=== PATIENT | female | born 1955 | race Caucasian/White ===

== ENCOUNTER 2022-02-03 07:27 | Inpatient (IN) | payer OTHER ==
[~2022-02-03] VITALS: Ht 160 cm; Wt 72.6 kg
[2022-02-03 07:44] VITALS: BP_SYST 118
[2022-02-03] MEDS ORDERED: NACL 0.9% 1,000 ML IV ONE (08:45)
[2022-02-03] MEDS ORDERED: METHOCARBAMOL 1000 MG/10 ML VIAL IVP ONE (08:45)
[2022-02-03] MEDS ORDERED: KETOROLAC TROMETHAMINE 30 MG VIAL IVP ONE (08:45)
[2022-02-03] MEDS ORDERED: LIP40 PO (08:55)
[2022-02-03] MEDS ORDERED: FLUT16SP16 NS (08:56)
[2022-02-03] MEDS ORDERED: LOSA50TA3 PO (08:56)
[2022-02-03] MEDS ORDERED: SERT-131 PO (08:57)
[2022-02-03] MEDS ORDERED: LEVO150C4 (08:59)
[2022-02-03 09:43] LABS: BASOPHILS # (AUTO) 0.1 K/uL (0.0-0.2); BASOPHILS % (AUTO) 1.2 % (0.0-2.0); EOSINOPHILS # (AUTO) 0.1 K/uL (0.0-0.4); EOSINOPHILS % (AUTO) 0.9 % (0.0-4.0); HEMATOCRIT 37.5 % (36-48); HEMOGLOBIN 13.1 g/dL (12.0-16.0); LYMPHOCYTES # (AUTO) 1.1 K/uL (1.0-5.5); LYMPHOCYTES % (AUTO) 12.2 % (20.5-51.5); MEAN CORPUSCULAR HEMOGLOBIN 34 pg (27-31); MEAN CORPUSCULAR HGB CONC 35 % (32-36); MEAN CORPUSCULAR VOLUME 99 fL (79.0-98.0); MONOCYTES # (AUTO) 0.4 K/uL (0.0-1.0); MONOCYTES % (AUTO) 4.3 % (1.7-9.3); NEUTROPHILS # (AUTO) 7.2 K/uL (1.8-7.7); NEUTROPHILS % (AUTO) 81.4 % (40.0-70.0); PLATELET COUNT (AUTO) 210 K/uL (130-430); RED CELL DISTRIBUTION WIDTH 12.8 % (9.0-15.0); WHITE BLOOD COUNT (AUTO) 8.8 K/uL (4.8-10.8)
[2022-02-03 10:15] LABS: ANION GAP 9 (5-15); CALCIUM 9.6 mg/dL (8.4-11.0); CHLORIDE 103 mmol/L (98-107); CREATININE 0.67 mg/dL (0.55-1.30); GLUCOSE 98 mg/dL (70-99); POTASSIUM 3.7 mmol/L (3.5-5.1); UREA NITROGEN, BLOOD 17 mg/dL (8-21)
[2022-02-03 10:17] LABS: GFR AFRICAN AMERICAN 113 mL/min (>90)
[2022-02-03 10:23] LABS: INR 0.9 (0.8-1.2); PROTHROMBIN TIME 9.9 SECS (9.5-12.5)
[2022-02-03 10:28] LABS: ALANINE AMINOTRANSFERASE 24 U/L (12-78); ALBUMIN 4.1 g/dL (3.4-4.8); ASPARTATE AMINOTRANSFERASE 21 U/L (10-37); TOTAL BILIRUBIN 0.5 mg/dL (0.0-1.0)
[2022-02-03 10:32] LABS: ACETAMINOPHEN < 1 ug/mL (1-30); ALCOHOL, BLOOD < 3 mg/dL (<10)
[2022-02-03 11:20] LABS: BILIRUBIN,URINE NEGATIVE (NEGATIVE); BLOOD, URINE NEGATIVE (NEGATIVE); CLARITY/URINE CLEAR (CLEAR); COLOR,URINE YELLOW (YELLOW); GLUCOSE,URINE NEGATIVE (NEGATIVE); KETONES,URINE NEGATIVE (NEGATIVE); LEUKOCYTE ESTERASE ,URINE NEGATIVE (NEGATIVE); NITRITE, URINE NEGATIVE (NEGATIVE); PROTEIN URINE NEGATIVE (NEGATIVE); UROBILINOGEN,URINE 0.2 (0.2-1.0)
[2022-02-03 11:37] LABS: BARBITURATE, URINE NEGATIVE (NEG <=200); BENZODIAZEPINE, URINE NEGATIVE (NEG <=150); CANNABINOID, URINE NEGATIVE (NEG <=50); COCAINE, URINE NEGATIVE (NEG <=150); METHAMPHETAMINES SCREEN,URINE NEGATIVE (NEG <=500); OPIATE, URINE NEGATIVE (NEG <=100); PHENCYCLIDINE SCREEN,URINE NEGATIVE (NEG <=25); UR TRICYCLIC ANTIDEPRESSANTS NEGATIVE (NEG <=300); URINE AMPHETAMINE NEGATIVE (NEG <=500); URINE METHADONE NEGATIVE (NEG <=200); URINE OXYCODONE SCREEN NEGATIVE (NEG <=100); URINE PROPOXYPHENE SCREEN NEGATIVE (NEG <=300)
[2022-02-03 15:57] VITALS: BP_SYST 121
[2022-02-03] MEDS ORDERED: SERTRALINE HCL 50 MG TABLET PO ONE (16:00)
[2022-02-03] MEDS ORDERED: ATORVASTATIN 20 MG TABLET PO ONE (16:00)
[2022-02-03] MEDS ORDERED: LOSARTAN POTASSIUM 50 MG TABLET (COZAAR) PO ONE (16:00)
[2022-02-03 16:25] VITALS: BP_SYST 122
[2022-02-03 20:00] VITALS: BP_SYST 99
[2022-02-04] VITALS (9 sets, daily range): BP systolic 114–130
[2022-02-04] MEDS: ACETAMINOPHEN 325 MG TABLET PO PRN ×2 (00:24→06:44)
[2022-02-04 07:19] LABS: ALBUMIN 3.3 g/dL (3.4-4.8); BILIRUBIN,DIRECT 0.1 mg/dL (0.0-0.3); CALCIUM 8.9 mg/dL (8.4-11.0); CREATININE 0.76 mg/dL (0.55-1.30); POTASSIUM 4.1 mmol/L (3.5-5.1); TOTAL BILIRUBIN 0.4 mg/dL (0.0-1.0)
[2022-02-04] MEDS: ATORVASTATIN 20 MG TABLET PO SCH (09:38)
[2022-02-04] MEDS: SERTRALINE HCL 50 MG TABLET PO SCH (09:38)
[2022-02-04] MEDS: LOSARTAN POTASSIUM 50 MG TABLET (COZAAR) PO SCH (09:39)
[2022-02-04] MEDS: HYDROcodone/ACETAMIN 5-325 MG TAB (NORCO/ VICODIN) PO PRN ×2 (09:41→21:57)
[2022-02-04] MEDS ORDERED: LEVOTHYROXINE SODIUM 0.15 MG TABLET PO ONE (13:30)
[2022-02-05] VITALS: BP_SYST 134
[2022-02-05] MEDS: ACETAMINOPHEN 325 MG TABLET PO PRN (04:41)
[2022-02-05] MEDS ORDERED: LEVOTHYROXINE SODIUM 0.15 MG TABLET PO SCH (07:00)
[2022-02-05] MEDS: SERTRALINE HCL 50 MG TABLET PO SCH (09:02)
[2022-02-05] MEDS: ATORVASTATIN 20 MG TABLET PO SCH (09:02)
[2022-02-05] MEDS: LOSARTAN POTASSIUM 50 MG TABLET (COZAAR) PO SCH (09:02)
[2022-02-05 09:20] VITALS: BP_SYST 143
[2022-02-05] MEDS: HYDROcodone/ACETAMIN 5-325 MG TAB (NORCO/ VICODIN) PO PRN (10:17)
== END 2022-02-05 16:30 | disposition home or self-care (01) | DRG 312 ==
LOC: SED 07:27 → STU 13:10 → SMU 15:14 → STU 15:30
PROVIDERS: ADMIT Specialist; ATTEND Specialist
DX: R55 Syncope and collapse (principal); S09.90XA Unspecified injury of head, initial encounter; W18.39XA Other fall on same level, initial encounter; E78.5 Hyperlipidemia, unspecified; E03.9 Hypothyroidism, unspecified; I11.9 Hypertensive heart disease without heart failure; R00.1 Bradycardia, unspecified; Z90.49 Acquired absence of other specified parts of digestive tract; Z79.899 Other long term (current) drug therapy; Z79.82 Long term (current) use of aspirin; Z90.710 Acquired absence of both cervix and uterus; Z85.850 Personal history of malignant neoplasm of thyroid; Y93.89 Activity, other specified; Y92.89 Other specified places as the place of occurrence of the external cause; Y99.8 Other external cause status; Z98.51 Tubal ligation status; Z88.8 Allergy status to other drugs, medicaments and biological substances; T50.905A Adverse effect of unspecified drugs, medicaments and biological substances, initial encounter; R51.9 Headache, unspecified
CPT/HCPCS: 36415; 70220-TC; 70450-TC; 71045; 76376; 80048; 80053; 80076; 80307; 81003; 83605; 84443; 84484; 85025; 85610-TC; 85730-TC; 87040; 93005; 93017; 96361; 96374; 96375; 99291; G0378; G0480; G0481; G0482; J1885; J2800